=== PATIENT | female | born 1995 | race African-American/Black ===

== ENCOUNTER 2021-03-05 22:49 | Emergency (ER) | payer MEDICAID ==
[~2021-03-05] VITALS: Ht 162.6 cm; Wt 81.6 kg
[2021-03-06 03:00] VITALS: BP 120/76
== END 2021-03-06 03:05 | disposition home or self-care (01) ==
LOC: ER 22:49
DX: M54.2 Cervicalgia (principal); F17.290 Nicotine dependence, other tobacco product, uncomplicated; Z98.890 Other specified postprocedural states
CPT/HCPCS: 70490; 71045; 99284

== ENCOUNTER 2023-12-24 01:12 | Emergency (ER) | payer MEDICAID, OTHER ==
[~2023-12-24] VITALS: Ht 167.6 cm; Wt 77.0 kg
[2023-12-24 01:29] VITALS: BP 109/68; PULSE 95; RESP 21; TEMP 98.1; O2SAT 100
== END 2023-12-24 03:15 | disposition left against medical advice (07) ==
LOC: ER 01:12
DX: M54.2 Cervicalgia (principal); R07.0 Pain in throat; Z53.21 Procedure and treatment not carried out due to patient leaving prior to being seen by health care provider
CPT/HCPCS: 99283